=== PATIENT | female | born 1960 | race Caucasian/White ===

== ENCOUNTER 2017-05-15 19:50 | Emergency (ER) | payer MEDICARE ==
[~2017-05-15] VITALS: Ht 162.6 cm; Wt 55.3 kg
[2017-05-15] MEDS ORDERED: predniSONE 20 MG TABLET PO ONE (21:15)
[2017-05-15] MEDS ORDERED: diphenhydrAMINE 50 MG/ML VIAL IM ONE (21:15)
[2017-05-15] MEDS ORDERED: DOXYCYCLINE HYCLATE 100 MG TABLET PO ONE (21:15)
[2017-05-15] MEDS ORDERED: TRAM-48 PO (23:56)
[2017-05-15] MEDS ORDERED: IBUP600T16 PO (23:56)
[2017-05-15] MEDS ORDERED: DOXY100C2 PO (23:56)
[2017-05-15] MEDS ORDERED: FAMO-63 PO (23:56)
[2017-05-15] MEDS ORDERED: PRED50TA PO (23:56)
[2017-05-15] MEDS ORDERED: DIPH25CA58 PO (23:56)
--- NOTE | 2017-05-15 23:57 | PHYS DOC ---
Adult General Chief Complaint Chief Complaint: SKIN RASH/ABSCESS HPI HPI Patient is a 57-year-old female who presents here today secondary to a rash to her left hand. Patient reports that she feels that she got bit by something approximate one the morning last night. Patient reports that it started itching approximate 5 in the morning which occurred while she was sleeping in bed. Patient denies any history of diabetes lung liver or kidney problems. Patient reports she does have a history of hypertension. Patient's tetanus status is up- to-date. Patient denies any fevers shakes chills nausea vomiting diarrhea abdominal pain or abdominal cramping. Patient denies any headaches. Patient reports that after the insect bite she started having itching to her hand as well as having pain and discomfort in that area. Patient was also noted that she 's had a rash to her chest and her left cheek as well. Review of systems: Constitutional: Denies fever or chills Eyes: Denies change in visual acuity, redness, or eye pain HENT: Denies nasal congestion or sore throat Respiratory: Denies cough or shortness of breath All other systems were reviewed and found to be within normal limits, except as documented in this note. Physical exam: Constitutional: Well developed, well nourished, no acute distress, non-toxic appearance. HENT: Normocephalic, atraumatic, bilateral external ears normal, nose normal. Eyes: PERRLA, EOMI, conjunctiva normal, no discharge. Neck: Normal range of motion, no tenderness, supple, no stridor. Cardiovascular: Heart rate regular rhythm, Lungs & Thorax: Bilateral breath sounds clear to auscultation Abdomen: No abdominal distention. Skin: Warm, dry, no erythema, Extremities: No tenderness, no cyanosis, no clubbing, ROM intact, no edema. Neurologic: Alert and oriented X 3, normal motor function, normal sensory function, no focal deficits noted. Psychologic: Affect normal, judgement normal, mood normal. Patient's ER physical exam was most remarkable: Patient does have a 1 cm blisterlike lesion to her left hypothenar eminence of the lateral aspect. There is some mild surrounding erythema. Patient does report itching in that area but also has tenderness. There is no lymphangitic streaking. There is no purulence. There is just a small area of what appears to be ecchymotic purpuric lesion. Patient has what appears to be hives to her cheek as well as her lower back and her anterior chest wall. Patient reports these lesions itch and that I have a tenderness whatsoever. Assessment and plan: 1. 57-year-old female who presents here today with a possible insect bite resulting in possible cellulitis. Patient's left hand on the lateral aspect of the hypo-thenar eminence has a blister with some surrounding erythema. Patient also has what appears to be hives on her body from an allergic reaction. Patient the ED was given antibiotics for possible cellulitis as well as Benadryl and prednisone to treat her for a allergic reaction with what appears to be hives. Patient has some improvement on the ER. Patient does still have some pain and tenderness to that area and her hand. I have offered admission to the patient to start her on IV antibiotics for cellulitis as well as treat her for her allergic reaction. At this time the patient is declining admission and understands that oral antibiotics may not be as effective his IV antibiotics. Patient is requesting a trial oral antibiotics at home and if the lesion gets worse she reports she lives close and will come back for reevaluation and possible admission at that time. Patient was discharged home on doxycycline as well as Benadryl, prednisone, Pepcid and given Ultram to help her with the pain. Patient was given strict precautions to follow-up with her primary care physician in one to 2 days for reevaluation and if unable to get in to return the ER for reevaluation within 1- 2 days. Patient is nontoxic appearing at this time. Patient is no evidence of meningitis or other purpuric lesions on her body except the one area that hurts at the area where she believes she was bit by an insect. Patient reports that it initially itched and now it hurts. Current Medications Current Medications Current Medications Medications (Trade) Dose Ordered Sig/Jennifer Start Time Stop Time Status Last Admin Dose Admin Diphenhydramine HCl (Benadryl) 50 mg 1X ONCE 05/15/17 21:15 05/15/17 21:16 DC 05/15/17 21:28 50 MG Doxycycline Hyclate (Vibra-Tab) 100 mg 1X ONCE 05/15/17 21:15 05/15/17 21:16 DC 05/15/17 21:28 100 MG Prednisone (Prednisone) 40 mg 1X ONCE 05/15/17 21:15 05/15/17 21:16 DC 05/15/17 21:28 40 MG Allergies Allergies Allergies Coded Allergies Type Severity Reaction Last Updated Verified Sulfa (Sulfonamide Antibiotics) Allergy Unknown 05/15/17 Yes EKG EKG [] Radiology/Procedures Radiology/Procedures [] Course & Med Decision Making Course & Med Decision Making Pertinent Labs and Imaging studies reviewed. (See chart for details) [] Dragon Disclaimer Dragon Disclaimer This electronic medical record was generated, in whole or in part, using a voice recognition dictation system. Departure Departure: Impression: Primary Impression: Allergic reaction Additional Impressions: Insect bite Cellulitis Disposition: 01 HOME, SELF-CARE Condition: STABLE Referrals: NON,STAFF (PCP) Patient Instructions: Cellulitis, Rash Additional Instructions: The etiology of your rash is unclear. It appears that he likely got bit by an insect and developed an allergic reaction as well as possible cellulitis to her hand. Please return to the ER if you should change your mind about not wanting to be admitted or if your symptoms worsen. Scripts Doxycycline Hyclate (DOXYCYCLINE HYCLATE) 100 Mg Capsule 1 CAP PO BID, #20 CAP Prov: ERIK KIM MD 05/15/17 Tramadol Hcl (ULTRAM) 50 Mg Tablet 50 MG PO PRN Q6HRS Y for PAIN, #20 TAB Prov: ERIK KIM MD 05/15/17 Prednisone (PREDNISONE) 50 Mg Tablet 1 TAB PO DAILY, #5 TAB Prov: ERIK KIM MD 05/15/17 Famotidine (PEPCID) 20 Mg Tablet 1 TAB PO BID, #10 TAB 0 Refills Prov: ERIK KIM MD 05/15/17 Ibuprofen (IBUPROFEN) 600 Mg Tablet 600 MG PO QID Y for PAIN, #20 Prov: ERIK KIM MD 05/15/17 Diphenhydramine Hcl (BENADRYL) 25 Mg Capsule 2 CAP PO QHS, #20 CAP 2 Refills Prov: ERIK KIM MD 05/15/17 Problem Qualifiers ERIK KIM MD May 15, 2017 23:57
[2017-05-16] MEDS ORDERED: traMADol 50 MG TABLET PO ONE
[2017-05-16 00:20] VITALS: BP 121/72
[2017-05-16] MEDS ORDERED: IBUPROFEN 600 MG TABLET. PO ONE ×2 (00:24)
[2017-05-16] MEDS ORDERED: traMADol 50 MG TABLET ONE (00:25)
== END 2017-05-16 00:30 | disposition home or self-care (01) ==
LOC: ER 19:50
DX: S60.562A Insect bite (nonvenomous) of left hand, initial encounter (principal); S00.86XA Insect bite (nonvenomous) of other part of head, initial encounter; S20.369A Insect bite (nonvenomous) of unspecified front wall of thorax, initial encounter; S30.860A Insect bite (nonvenomous) of lower back and pelvis, initial encounter; T78.49XA Other allergy, initial encounter; L03.818 Cellulitis of other sites; I10 Essential (primary) hypertension; Z88.2 Allergy status to sulfonamides; W57.XXXA Bitten or stung by nonvenomous insect and other nonvenomous arthropods, initial encounter; Y93.89 Activity, other specified; Y99.8 Other external cause status; Y92.89 Other specified places as the place of occurrence of the external cause
CPT/HCPCS: 96372; 99284; J1200; J7512